=== PATIENT | male | born 1975 | race Caucasian/White ===

== ENCOUNTER 2016-09-15 18:25 | Emergency (ER) | payer OTHER ==
[~2016-09-15] VITALS: Ht 170.2 cm; Wt 131.1 kg
[2016-09-15 19:43] LABS: ASPARTATE AMINO TRANSFERASE 25 U/L (15-37); BLOOD UREA NITROGEN 9 mg/dL (7-18)
[2016-09-15 21:47] VITALS: BP 117/84
== END 2016-09-15 21:50 | disposition home or self-care (01) ==
LOC: ED 21:44
DX: S39.012A Strain of muscle, fascia and tendon of lower back, initial encounter (principal); S33.5XXA Sprain of ligaments of lumbar spine, initial encounter; M46.1 Sacroiliitis, not elsewhere classified; F10.20 Alcohol dependence, uncomplicated; X50.9XXA Other and unspecified overexertion or strenuous movements or postures, initial encounter; Y93.89 Activity, other specified; Y92.89 Other specified places as the place of occurrence of the external cause; Y99.8 Other external cause status
CPT/HCPCS: 36415; 74176; 80053; 81003; 85025

== ENCOUNTER 2017-07-07 11:46 | Emergency (ER) | payer OTHER ==
[~2017-07-07] VITALS: Ht 170.2 cm; Wt 121.1 kg
[2017-07-07 12:05] VITALS: BP 136/94
[2017-07-07] MEDS ORDERED: KETOROLAC 30 MG/1 ML IM ONE (14:00)
[2017-07-07] MEDS ORDERED: METHOCARBAMOL 750 MG TABLET PO ONE (14:00)
== END 2017-07-07 15:01 | disposition home or self-care (01) ==
LOC: ED 14:55
DX: G89.29 Other chronic pain (principal); M54.2 Cervicalgia; M54.9 Dorsalgia, unspecified; F17.200 Nicotine dependence, unspecified, uncomplicated
CPT/HCPCS: 72050; 96372; 99284; J1885

== ENCOUNTER 2021-01-10 11:56 | Emergency (ER) | payer OTHER ==
[~2021-01-10] VITALS: Ht 170.2 cm; Wt 111.0 kg
[2021-01-10 12:16] VITALS: BP 134/88
[2021-01-10 12:44] LABS: BASOPHILS % (AUTO) 1 % (0-1); EOSINOPHILS % (AUTO) 1 % (1-7); LYMPHOCYTES % (AUTO) 25 % (22-44); MEAN CORPUSCULAR HEMOGLOBIN 31.8 pg (27.5-34.5); MEAN CORPUSCULAR HGB CONC 34.2 g/dL (33.2-36.2); MEAN PLATELET VOLUME 7.4 fL (7.4-10.4); MONOCYTES % (AUTO) 9 % (2-9); NEUTROPHILS % (AUTO) 64 % (42-75); PLATELET COUNT 216 x10^3/uL (130-400); RED BLOOD COUNT 4.67 x10^6/uL (4.38-5.82); RED CELL DISTRIBUTION WIDTH 13.4 % (9.4-14.8)
[2021-01-10 12:58] LABS: ALBUMIN 3.8 g/dL (3.4-5.0); ANION GAP 8 mmol/L (5-15); CALCIUM 8.3 mg/dL (8.5-10.1); CHLORIDE 106 mmol/L (98-107)
[2021-01-10 13:02] LABS: ALANINE AMINOTRANSFERASE 25 U/L (12-78); ALKALINE PHOSPHATASE 71 U/L (45-117); BILIRUBIN,TOTAL 0.9 mg/dL (0.2-1.0); CREATININE 0.81 mg/dL (0.7-1.3); TOTAL PROTEIN 7.3 g/dL (6.4-8.2)
--- NOTE | 2021-01-10 13:55 | NUR ---
multi skilled operator note: Pt to room from lobby.
--- NOTE | 2021-01-10 14:52 | NUR ---
Pt sitting in chair, NADN, denies needs. Dr. Gamboa at bedside to evaluate pt.
== END 2021-01-10 15:03 | disposition home or self-care (01) ==
LOC: ED 14:55
DX: K64.8 Other hemorrhoids (principal); F17.200 Nicotine dependence, unspecified, uncomplicated
CPT/HCPCS: 36415; 80053; 83690; 85025; 99283